=== PATIENT | male | born 1970 | race Caucasian/White ===

== ENCOUNTER 2017-01-17 09:43 | Day surgery (SDC) | payer MEDICARE, MEDICAID ==
[~2017-01-17 09:43] MED LIST: ALBUTEROL/IPRATROPIU; ASCORBIC ACID500 M4 PO; ASPIRIN325 M3 PO; AZACTAM IV; BACITRACIN28.4 G2 TP; CALCIUM 600 +1 EA12 PO; CELEXA40 MG PO; CLONAZEPAM0.5 MG PO; COLACE100 MG PO; DIAZEPAM10 MG; DIFLUCAN100 MG PO; DOCUSATE CALCI100 MG PO; HIPREX1 GM PO; HY; HYDROCODON-ACE1 EA15 PO; HYDROCODON-ACE1 EAC5 PO; LEVAQUIN750 MG PO; LISINOPRIL10 M1 PO; LISINOPRIL10 MG PO; LORCET 10/650 T1 TAB PO; MIRALAX17 G2 PO; NORCO 10-325 T1 EACH PO; PERCOCET 10-321 EACH PO; PIPERACIL-TAZO4.5 G1 IV; PIPERACILLIN IV; SELSUN BLUE325 M1; SENOKOT8.6 MG PO; SULFAMYLON SOL250 ML EXT; SWEEN 24255 GM TP; TAZOBACTAM IV; TOPROL XL100 M1 PO; TYLENOL325 MG PO; UNASYN IV; VALIUM10 M1 PO; VITAMIN D2000 UNI1 PO; [UNRECOGNIZED DRUG - OTHER] TP
[2017-01-17 10:44] LABS: BASO % 0.5 % (0-2); BASO ABSOLUTE COUNT 0.1 tho/cmm (0.0-0.2); EOS % 3.2 % (0-7); EOSINOPHIL ABSOLUTE COUNT 0.4 tho/cmm (0.0-0.7); HCT-HEMATOCRIT 44.5 % (36.0-53.5); HGB-HEMOGLOBIN 15.1 gm/dl (13.5-17.0); IMMATURE GRANULOCYTES ABSOLUTE 0.04 tho/cmm (0-0.03); IMMATURE GRANULOCYTES PERCENT 0.3 % (0-0.3); LYMPH % 23.8 % (20-45); LYMPH ABSOLUTE COUNT 2.8 tho/cmm (0.8-4.5); MCH (MEAN CORPUSCULAR HGB) 28.9 pg (28.0-32.0); MCHC MEAN CORPUSCULAR HGB CONC 33.9 % (32.0-36.0); MCV (MEAN CELL VOLUME) 85.2 fl (82.0-96.0); MEAN PLATELET VOLUME 9.1 cmc (9.4-12.4); MONO % 7.3 % (0-12); MONOCYTE ABSOLUTE COUNT 0.9 tho/cmm (0.0-1.2); NEUTROPHIL ABSOLUTE COUNT 7.7 tho/cmm (1.6-8.0); NEUTROPHIL-AUTOMATED 7.7 tho/cmm (1.6-8.0); NEUTROPHILS % 64.9 % (40-80); PLATELET COUNT 411 tho/cmm (150-450); RED BLOOD COUNT 5.22 mil/cmm (4.40-5.70); WHITE BLOOD COUNT 11.9 tho/cmm (4.0-10.0)
[2017-01-17 10:58] LABS: ANION GAP 12 mmol/L (0-20); BLOOD UREA NITROGEN 10 mg/dl (6-24); CALCIUM 9.2 mg/dl (8.5-10.5); CARBON DIOXIDE-VENOUS 25 mmol/L (22-32); CHLORIDE 106 mmol/l (96-110); CREATININE 0.67 mg/dl (0.60-1.30); GLUCOSE 80 mg/dL (70-110); SODIUM 138 mmol/L (135-145); eGFR VALUE FOR BLACK >90 mL/Min
[2017-01-17 11:01] LABS: POTASSIUM 4.7 mmol/L (3.7-5.1)
[2017-02-28] MEDS ORDERED: NORCO 10-325 T1 EACH PO (11:43)
[2017-03-11] MEDS ORDERED: NORCO 5-325 TA1 EACH PO (14:00)
== END 2017-01-18 14:10 ==
LOC: SHSB 09:43 → SRG 09:43 → SHSB 09:47 → SRG 10:00 → BURN 12:25 → SRG 01-18 14:10
PROVIDERS: Anesthesiology; Surgery
PROC: 0HRNXK3 Replacement of Left Foot Skin with Nonautologous Tissue Substitute, Full Thickness, External Approach (ICD-10-PCS; principal; 2017-01-17)
PROC: 0HRMXK3 Replacement of Right Foot Skin with Nonautologous Tissue Substitute, Full Thickness, External Approach (ICD-10-PCS; 2017-01-17)
DX: L89.529 Pressure ulcer of left ankle, unspecified stage (principal); L89.899 Pressure ulcer of other site, unspecified stage; I10 Essential (primary) hypertension; G82.20 Paraplegia, unspecified; F17.210 Nicotine dependence, cigarettes, uncomplicated; E11.9 Type 2 diabetes mellitus without complications; D72.829 Elevated white blood cell count, unspecified; G89.4 Chronic pain syndrome; G47.00 Insomnia, unspecified; Z79.82 Long term (current) use of aspirin; Z79.899 Other long term (current) drug therapy; Z86.14 Personal history of Methicillin resistant Staphylococcus aureus infection; Z87.440 Personal history of urinary (tract) infections; Z90.49 Acquired absence of other specified parts of digestive tract; Z98.890 Other specified postprocedural states
CPT/HCPCS: C5275; C5276 ×2; J0171; J3260; J3370; J7030; Q4100

== ENCOUNTER 2017-01-31 10:12 | Day surgery (SDC) | payer MEDICARE, MEDICAID ==
[2017-01-31 10:54] LABS: BASO % 0.4 % (0-2); BASO ABSOLUTE COUNT 0.1 tho/cmm (0.0-0.2); EOS % 2.6 % (0-7); EOSINOPHIL ABSOLUTE COUNT 0.4 tho/cmm (0.0-0.7); HCT-HEMATOCRIT 43.2 % (36.0-53.5); HGB-HEMOGLOBIN 14.6 gm/dl (13.5-17.0); IMMATURE GRANULOCYTES ABSOLUTE 0.05 tho/cmm (0-0.03); IMMATURE GRANULOCYTES PERCENT 0.3 % (0-0.3); LYMPH % 22.1 % (20-45); LYMPH ABSOLUTE COUNT 3.2 tho/cmm (0.8-4.5); MCH (MEAN CORPUSCULAR HGB) 28.7 pg (28.0-32.0); MCHC MEAN CORPUSCULAR HGB CONC 33.8 % (32.0-36.0); MEAN PLATELET VOLUME 9.5 cmc (9.4-12.4); MONO % 7.8 % (0-12); MONOCYTE ABSOLUTE COUNT 1.1 tho/cmm (0.0-1.2); NEUTROPHIL ABSOLUTE COUNT 9.5 tho/cmm (1.6-8.0); NEUTROPHIL-AUTOMATED 9.5 tho/cmm (1.6-8.0); NEUTROPHILS % 66.8 % (40-80); PLATELET COUNT 434 tho/cmm (150-450); RED BLOOD COUNT 5.08 mil/cmm (4.40-5.70); RED CELL DISTRIBUTION WIDTH 15.8 % (12.4-16.4); WHITE BLOOD COUNT 14.3 tho/cmm (4.0-10.0)
[2017-02-01] MEDS ORDERED: HYDROCODON-ACE1 EA16 PO (08:38)
[2017-02-28] MEDS ORDERED: NORCO 10-325 T1 EACH PO (11:43)
[2017-03-11] MEDS ORDERED: NORCO 5-325 TA1 EACH PO (14:00)
== END 2017-02-01 11:26 ==
LOC: SRG 10:12 → SHSC 10:12 → ORW 12:11 → BURN 12:32 → SRG 02-01 11:26
PROVIDERS: Surgery
PROC: 0HRNXK3 Replacement of Left Foot Skin with Nonautologous Tissue Substitute, Full Thickness, External Approach (ICD-10-PCS; principal; 2017-01-31)
PROC: 0HRMXK3 Replacement of Right Foot Skin with Nonautologous Tissue Substitute, Full Thickness, External Approach (ICD-10-PCS; 2017-01-31)
DX: L89.622 Pressure ulcer of left heel, stage 2 (principal); L89.612 Pressure ulcer of right heel, stage 2; I10 Essential (primary) hypertension; G82.20 Paraplegia, unspecified; G47.00 Insomnia, unspecified; G89.4 Chronic pain syndrome; D72.829 Elevated white blood cell count, unspecified; F17.210 Nicotine dependence, cigarettes, uncomplicated; Z90.49 Acquired absence of other specified parts of digestive tract; Z79.82 Long term (current) use of aspirin; Z79.899 Other long term (current) drug therapy; Z98.890 Other specified postprocedural states
CPT/HCPCS: C5275; C5276; J0171; J3260; J3370; Q4100